=== PATIENT | male | born 1945 | race Caucasian/White ===

== ENCOUNTER 2019-07-31 17:49 | Observation (INO) | payer MEDICARE, SELFPAY ==
[2019-07-31] VITALS (9 sets, daily range): BP systolic 148–196; BP diastolic 75–113; PULSE 54–66; RESP 12–20; TEMP 36.3–36.7; O2SAT 96–100; BMI 30.7
--- NOTE | 2019-07-31 17:59 | NURSING ---
NO OLD EKGS
--- NOTE | 2019-07-31 18:03 | EKG12_ITS ---
Test Reason : CP Blood Pressure : / mmHG Vent. Rate : 056 BPM Atrial Rate : 056 BPM P-R Int : 218 ms QRS Dur : 098 ms QT Int : 442 ms P-R-T Axes : 039 074 102 degrees QTc Int : 426 ms Sinus bradycardia with 1st degree A-V block Otherwise normal ECG When compared with ECG of 31-JUL-2019 17:59, MANUAL COMPARISON REQUIRED, DATA IS UNCONFIRMED Confirmed by JOSE DALTON ([id number]), associate editor FARRUKH WILSON ([id number]) on 08/01/2019 1:19:20 PM Referred By: DR. HUERTA Confirmed By:JOSE DALTON
--- NOTE | 2019-07-31 18:15 | RAD_ITS ---
STUDY: X-RAY CHEST REASON FOR EXAM: Male, 74 years old. Chest pain TECHNIQUE: Frontal view COMPARISON: None. FINDINGS: The lungs are expanded. Possible left suprahilar focal infiltrate. Normal size heart. Normal mediastinum and juan manuel. Normal visualized pulmonary arteries. Normal visualized aortic arch and descending thoracic aorta. Degenerative changes of the thoracic spine. Normal visualized ribs, clavicles, and shoulders. There is no demonstrated abnormality of the visualized soft tissue structures of the upper abdomen. RAD/Chest 1 View (Portable) IMPRESSION: Left suprahilar focal infiltrate. Electronically Signed: Braulio Queen DO at 18:37 EST Tel [phone], Service support ,
[2019-07-31] MEDS: Aspirin 81 MG TAB.CHEW 324 MG PO (18:16)
--- NOTE | 2019-07-31 18:17 | ED.VISSUMM ---
- ER Visit Summary Date of Service: 07/31/19 Chief Complaint: Left Sided chest pain History of Present Illness: The patient is a 74 M TIA and history of mild COPD. Patient still smokes. He has no known cardiac history. He does not believe he is ever had a stress test or heart cath. States yesterday today has had left-sided chest pressure. States for some time is had exertional dyspnea. No history of DVT or PE. No recent travel, surgery or immobilization. No leg pain or swelling. No pleuritic pain. No hemoptysis. Currently is pain-free. Physical Examination: Older male no acute distress currently pain-free initial blood pressure 187/88. Pulse ox are percent on room air no signs hypoxia. H EENT exam unremarkable. Neck nontender no JVD. Lungs clear to auscultation bilaterally. Heart regular rhythm no murmur. Chest were nontender. Abdomen soft nontender. Normal bowel sounds no peritoneal signs. Extremities moves all 4. Equal symmetrical radial pulses. Calves are nontender without edema or cords. Neurologically is awake and alert with no focal motor deficits. Test Results: EKG shows a normal sinus rhythm rate of 61 with no acute signs of DE or ischemia. No old EKG available for comparison. Chest x-ray portable 1 view shows a questionable left perihilar infiltrate versus scarring versus other. One view read both by myself and the radiologist. CBC white count of 7. Hemoglobin 16. Chemistries unremarkable creatinine of 1.2 gap of 4 troponin normal. Repeat exam the patient is doing well at 1842. He is pain-free. He and I discussed his test results he is comfortable with being admitted. Emergency Department Course and Treatment: Male with exertional dyspnea and nonreproducible chest pain. Concern is for cardiac etiology. To undergo cardiac work-up. Received p.o. aspirin. Treatment Plan: Hospitalist on page for admission Disposition: Admission Impression: Acute chest pain uncertain etiology This note was generated with [employer] dictation software. It may contain incorrect words, spelling, and punctuation that were not noted in review of the chart prior to signing
[2019-07-31 18:19] LABS: Absolute Lymphocyte Count 3.15 X10^3/uL (0.83-4.51); Absolute Neutrophil Count 3.2 X10^3/uL (2.0-7.7); Basophil# 0.07 X10^3/uL; Basophil% 0.9 % (0-1); Eosinophil# 0.25 X10^3/uL; Eosinophils% 3.4 % (0-5); Hematocrit 48.9 % (40-54); Hemoglobin 16.6 g/dL (13.0-16.5); Lymphocyte # 3.15 X10^3/ul (4.0); Lymphocyte % 42.6 % (19-41); Mean Corp Hgb Conc 33.9 g/dL (32-36); Mean Corpuscular Hgb 31.4 pg (27.0-32.0); Mean Corpuscular Volume 92.4 fL (80-94); Mean Platelet Vol. 10.4 fl (6.2-12.0); Monocyte# 0.75 X10^3/uL; Monocyte% 10.1 % (0-10); NRBC Flagged by Analyzer 0 % (0-5); Neutrophil # 3.16 X10^3/uL (2.7-7.7); Neutrophil % 42.7 % (47-70); Platelet Count 307 K/mm3 (150-450); RBC Distribution Width CV 13.2 % (11.6-14.6); RBC Distribution Width SD 45.1 fl (35.1-43.9); Red Blood Count 5.29 M/mm3 (4.6-6.2); White Blood Count 7.4 K/mm3 (4.4-11.0)
[2019-07-31 18:30] LABS: Anion Gap 4 (5-15); BUN 11 mg/dL (7-18); BUN/Creat Ratio 9.1 RATIO (10-20); Calcium,Total 9.5 mg/dL (8.5-10.1); Chloride 105 mmol/L (98-107); Creatinine, Serum 1.21 mg/dL (0.70-1.30); EST Glomerular Filtration Rate 63 mL/min (>60); Est Glom Filt Rate - Afr Amer 76 mL/min (>60); Estimated Creatinine Clearance 60.57 ml/min; Glucose 109 mg/dL (74-106); Potassium 3.7 mmol/L (3.5-5.1); Sodium Level 139 mmol/L (136-145)
--- NOTE | 2019-07-31 18:51 | HP.PCM_ITS ---
History of Present Illness The patient is a 74 year old M [] Past Medical History Allergies No Known Allergies Allergy (Verified 07/31/19 17:54) Home Medications: Ambulatory Orders Medication Instructions Recorded Aspirin [Aspir 81] 81 mg PO DAILY 07/31/19 Bupropion HCl [Bupropion HCl Sr] 150 mg PO DAILY 07/31/19 Smoking Status: Current every day smoker - Physical Exam Vitals/I&O's: Vital Signs Temp Pulse Resp BP Pulse Ox 97.4 F L 62 20 H 196/113 H 96 07/31/19 17:50 07/31/19 18:47 07/31/19 18:47 07/31/19 18:47 07/31/19 18:47 Oxygen Delivery Method Room Air Weight: 226 lb 10.163 oz Body Mass Index (BMI) 30.7 Laboratory Results 07/31/19 18:05: WBC 7.4, RBC 5.29, Hgb 16.6 H, Hct 48.9, MCV 92.4, MCH 31.4, MCHC 33.9, RDW Std Deviation 45.1 H, RDW Coeff of Liudmila 13.2, Plt Count 307, MPV 10.4, Immature Gran % (Auto) 0.300, Neut % (Auto) 42.7 L, Lymph % (Auto) 42.6 H, [place] % (Auto) 10.1 H, Eos % (Auto) 3.4, Baso % (Auto) 0.9, Absolute Neuts (auto) 3.2, Absolute Lymphs (auto) 3.15, Nucleated RBC % 0 07/31/19 18:05: Sodium 139, Potassium 3.7, Chloride 105, Carbon Dioxide 30.0, Anion Gap 4 L, BUN 11, Creatinine 1.21, Estim Creat Clear Calc 60.57, Est GFR (MDRD) Af Amer 76, Est GFR (MDRD) Non-Af 63, BUN/Creatinine Ratio 9.1 L, Glucose 109 H, Calcium 9.5, Troponin I < 0.015
--- NOTE | 2019-07-31 19:46 | HP.PCM_ITS ---
Problem List (1) Chest pain Status: Acute Qualifiers: Chest pain type: unspecified Qualified Code(s): R07.9 - Chest pain, unspecified (2) COPD (chronic obstructive pulmonary disease) Status: Chronic Qualifiers: COPD type: unspecified COPD Qualified Code(s): J44.9 - Chronic obstructive pulmonary disease, unspecified (3) Tobacco use Status: Chronic (4) HTN (hypertension) Status: Chronic Qualifiers: Hypertension type: essential hypertension Qualified Code(s): I10 - Essential (primary) hypertension (5) HLD (hyperlipidemia) Status: Chronic Qualifiers: Hyperlipidemia type: unspecified Qualified Code(s): E78.5 - Hyperlipidemia, unspecified (6) Obesity (BMI 30.0-34.9) Status: Chronic History of Present Illness Date of Admission: 07/31/19 Chief Complaint: Chest pain The patient is a 74 y/o M w/ PMHx: Obesity, Heavy Tobacco use history, History of HTN and HLD taken off his regimen 1 year prior as well controlled per his report, COPD not on regimen who presents to the [facility] ED on 07/31/19 with history of onset of chest discomfort over the last 2 days noted to be left-sided, underneath the breast, described as a pressure, 7 of 10 in severity at its worst, 2 out of 10 on evaluation in the ED, with no radiation nor any increased dyspnea above baseline nor nausea, emesis or diaphoresis, lasting minutes to hour the day prior but continued upon ED day of presentation prompting eventual evaluation. Patient does admit that he has exertional dyspnea, worse with any activity including stairs that is been ongoing for at least several months if not to the last year and a half. Work-up in the ED included T 97.4, heart rate 63, BP initially 187/88 with improvement to 169/87, respiratory rate 14, 100% room air, CBC with WC 7.4, hemoglobin 16.6, platelet 307 with no left shift but increased lymphocytes and monocytes, BMP with glucose 109 otherwise not market, troponin less than 0.015, EKG was sinus rhythm with no acute evidence of ischemia, chest x-ray with a left suprahilar focal infiltrate although patient with no recent increased cough, congestion, dyspnea, fever or chills thus lower suspicion but significant tobacco use history. In the ED patient administered aspirin therapy. Past Medical History Past Medical History (Chronic Problems): Chronic Problems COPD (chronic obstructive pulmonary disease) (Chronic) Tobacco use (Chronic) HTN (hypertension) (Chronic) HLD (hyperlipidemia) (Chronic) Obesity (BMI 30.0-34.9) (Chronic) Allergies No Known Allergies Allergy (Verified 07/31/19 17:54) Home Medications: Ambulatory Orders Medication Instructions Recorded Aspirin [Aspir 81] 81 mg PO DAILY 07/31/19 Psychiatric History: No pertinent psych hx Lives: With Family - Lives with his daughter and her . Smoking Status: Current every day smoker - 1 ppd cigarette tobacco usage ongoing since use. Tobacco Use: Cigarettes Alcohol: Occasional Drugs: None - *Family History Maternal History Items: High Cholesterol, Heart Disease, Hypertension Paternal History Items: - - Patient states he does not know his paternal family history as his father left when he was 6 weeks old. Review of Systems Constitutional: Reports: Malaise, Weakness, Fatigue. Denies: Anorexia, Chills, Fever, Weight Change HEENT: Denies: Head Aches, Sinus Congestion, Sinus Drainage Cardiovascular: Reports: Chest Pain, Chest Pressure, Chest Tightness, Heaviness, Light Headedness. Denies: Orthopnea, Palpitations, Syncope Respiratory: Reports: Shortness of Breath, Shortness of breath upon exertion. Denies: Cough, Shortness of breath at rest, Sputum production Gastrointestinal: Denies: Abdominal Pain, Nausea, Vomiting Genitourinary: Denies: Dysuria Musculoskeletal: Reports: Joint Pain. Denies: Joint Tenderness Skin: Denies: Rash, Wounds Neurological: Denies: Numbness, Tingling, Focal weakness Psychiatric: Denies: Anxiety, Depression, Homicidal Ideations, Suicidal Ideations Hematologic/ Lymphatic: Denies: Easy Bruising, Easy Bleeding VTE Information - Inpt Only VTE Present on Admission: No VTE Mechan Device Prophylaxis: SCD's VTE Pharm Prophylaxis ordered?: Yes Patient Problems: Active and Suspected Problems Chest pain (Acute) Subjective: Seated upright in ED bed, mildly fatigued appearance, notes chest discomfort improved, currently 2 out of 10 in severity. Objective: Physical Examination: General: awake, alert, oriented x 3 and cooperative, seated upright in the ED bed in no apparent distress, notes improved chest discomfort, 10 of 10 currently. Skin: normal color, turgor, no icterus, cyanosis. HEENT: AT/NC, EOMI, PERRLA, MMM, no carotid bruits or JVD noted. Lungs: Mildly diminished breath sounds, greater bases, moderate effort, no obvious no rales, ronchi or wheezing. Heart: Mildly bradycardic with regular rhythm; no gallop, rub audible. Abdomen: soft, obese, NTTP, ND, normal BS, no HSM. Extremities: no cyanosis, clubbing, or edema. Neurological: patient awake, alert, oriented x 3; cognitive function intact; pupils equally reactive to light and accomodation; cranial nerves II-XII grossly normal, moving all 4 extremities, no focal deficits, strength mildly to moderately global decrease secondary to acute complaints. Psychiatric: affect appears mildly fatigued otherwise normal, no acute evidence of depressive or anxiety feelings. - Physical Exam Vitals/I&O's: Vital Signs Temp Pulse Resp BP Pulse Ox 97.4 F L 58 L 12 169/87 H 97 07/31/19 17:50 07/31/19 19:07 07/31/19 19:07 07/31/19 19:07 07/31/19 19:07 Oxygen Delivery Method Room Air Weight: 226 lb 10.163 oz Body Mass Index (BMI) 30.7 Laboratory Results 07/31/19 18:05: WBC 7.4, RBC 5.29, Hgb 16.6 H, Hct 48.9, MCV 92.4, MCH 31.4, MCHC 33.9, RDW Std Deviation 45.1 H, RDW Coeff of Liudmila 13.2, Plt Count 307, MPV 10.4, Immature Gran % (Auto) 0.300, Neut % (Auto) 42.7 L, Lymph % (Auto) 42.6 H, Iron % (Auto) 10.1 H, Eos % (Auto) 3.4, Baso % (Auto) 0.9, Absolute Neuts (auto) 3.2, Absolute Lymphs (auto) 3.15, Nucleated RBC % 0 07/31/19 18:05: Sodium 139, Potassium 3.7, Chloride 105, Carbon Dioxide 30.0, Anion Gap 4 L, BUN 11, Creatinine 1.21, Estim Creat Clear Calc 60.57, Est GFR (MDRD) Af Amer 76, Est GFR (MDRD) Non-Af 63, BUN/Creatinine Ratio 9.1 L, Glucose 109 H, Calcium 9.5, Troponin I < 0.015 Current Medications Sodium Chloride () 10 - 40 ml IV UD PRN PRN Reason: SALINE FLUSH Assessment/Plan All Active Problems Chest pain (Acute) The patient is a 74 y/o M w/ PMHx: Obesity, Heavy Tobacco use history, History of HTN and HLD taken off his regimen 1 year prior as well controlled per his report, COPD not on regimen who presents to the [facility] ED on 07/31/19 with history of onset of chest discomfort over the last 2 days noted to be left-sided, underneath the breast, described as a pressure, 7 of 10 in severity at its worst, 2 out of 10 on evaluation in the ED, with no radiation nor any increased dyspnea above baseline nor nausea, emesis or diaphoresis, lasting minutes to hour the day prior but continued upon ED day of presentation prompting eventual evaluation. 1. Chest Pain: EKG in ED with sinus bradycardia with first-degree AV block with no acute evidence of ischemia, CXR w/ abnormal left suprahilar focal infiltrate mentioned but again not consistent with history for pneumonia, initial trop x1. Will admit to PCU, place on a monitored bed to assure no acute myocardial infarction with serial cardiac enzymes and EKGs. Given patient history of significant dyspnea with exertion with underlying COPD will request nuclear stress test in a.m. if EKG and cardiac enzymes remain appropriate. Additional history of lightheadedness with positional changes, ongoing for several months, will obtain admission orthostatic vital signs. ASA, NG, morphine. 2. Abnormal chest x-ray: Chest x-ray with noted left suprahilar focal infiltrate, no recent cough, congestion, worsened dyspnea, fevers or chills, given significant tobacco use history some concern for alternate etiology, will obtain CT chest. 3. Hypertension: Notes previously on regimen, possibly lisinopril per his report but taken off 1 year prior as BPs have been improved with lifestyle changes, notably elevated, will re-add lisinopril, suspect likely may need additional regimen but will continue to monitor, PRN IV hydralazine. 4. Hyperlipidemia: Notes he was previously on medication but his cholesterol was good and was taken off approximately 1 year prior at the same time as his hypertensive regimen, FLP in a.m., possibly re-addition. 5. Chronic COPD: We will initiate ATC duonebs, PRN albuterol, HOB, IS parameters, discussed importance of following with pulmonary outpatient as ongoing dyspnea complaints, worse with exertion and possibly pulmonary component. 6. Tobacco Abuse: Encouraged cessation, inpatient consultation per RT, NR if desired. 7. Obesity: Weight loss and lifestyle changes encouraged. 8. DVT prophylaxis: SCDs, Lovenox. Code Visit OBSV E&M: [id number] Initial observation care L3
--- NOTE | 2019-07-31 20:14 | CT_ITS ---
STUDY: CTA CHEST REASON FOR EXAM: Male, 74 years old. ABNORMAL CXR, CP X 2 DAYS, HX HTN, COPD RADIATION DOSAGE (If Supplied By Facility): CTDIvol = ( 12.16 ) mGy, DLP = ( 531.73 ) mGycm TECHNIQUE: The examination was performed with the intravenous administration of IV 100mL Isovue-370. Post-processing of the angiographic images was performed, with multiplanar reformation and 3D reconstruction. Individualized dose optimization techniques were used for this CT. COMPARISON: None. FINDINGS: Normal enhancement of the main pulmonary artery and right and left pulmonary arteries. Normal enhancement of the bilateral peripheral pulmonary arteries. There is no demonstrated pulmonary embolism. Normal thoracic aorta and visualized great vessels. There is no demonstrated aortic dissection. Normal heart and pericardium. Normal mediastinum. Normal hilar regions. Normal visualized trachea and bronchi. The lungs are well expanded. Calcified and noncalcified nodules are noted bilaterally up to 7 mm. Normal pleura. Normal chest wall structures. Degenerative vertebral changes. Normal visualized upper abdomen. CT/CTA Chest W/WO Contrast IMPRESSION: No demonstrated pulmonary embolism or arterial dissection. Calcified and noncalcified pulmonary nodules bilaterally likely granulomatous in nature. Electronically Signed: Braulio Queen DO at 21:12 EST Tel [phone], Service support ,
--- NOTE | 2019-07-31 20:14 | EKG12_ITS ---
Test Reason : Blood Pressure : / mmHG Vent. Rate : 061 BPM Atrial Rate : 061 BPM P-R Int : 204 ms QRS Dur : 098 ms QT Int : 422 ms P-R-T Axes : 047 077 104 degrees QTc Int : 424 ms Normal sinus rhythm Normal ECG Confirmed by JOSE DALTON ([id number]), social media editor MICHAEL CHÁVEZ ([id number] on 08/04/2019 3:42:31 PM Referred By: JOSEFA Confirmed By:JOSE DALTON
[2019-07-31 20:28] LABS: Magnesium 2.4 mg/dL (1.6-2.6)
[2019-07-31] MEDS: Ipratropium/Albuterol Sulfate 3 ML AMPUL.NEB INHALATION (21:20)
[2019-07-31] MEDS: Acetaminophen 325 MG Tablet 650 MG PO (21:57)
[2019-07-31] MEDS: Lisinopril 20 MG Tablet PO (21:59)
[2019-07-31] MEDS: Famotidine 20 MG Tablet PO (21:59)
[2019-07-31] MEDS: 0.9% Normal Saline 1,000 ML 100 ML IV (22:01)
[2019-07-31] MEDS: 0.9% Saline Lock 10 ML Syringe IV (22:04)
[2019-08-01 03:15] VITALS: PULSE 54
[2019-08-01 04:23] VITALS: BP 137/75; PULSE 51; RESP 17; TEMP 36.7; O2SAT 97
[2019-08-01 05:45] LABS: Absolute Lymphocyte Count 3.16 X10^3/uL (0.83-4.51); Absolute Neutrophil Count 2.6 X10^3/uL (2.0-7.7); Basophil# 0.06 X10^3/uL; Basophil% 0.9 % (0-1); Eosinophils% 4.3 % (0-5); Hematocrit 44.5 % (40-54); Hemoglobin 15.1 g/dL (13.0-16.5); Lymphocyte # 3.16 X10^3/ul (4.0); Lymphocyte % 45.8 % (19-41); Mean Corp Hgb Conc 33.9 g/dL (32-36); Mean Corpuscular Hgb 31.1 pg (27.0-32.0); Mean Corpuscular Volume 91.8 fL (80-94); Mean Platelet Vol. 10.3 fl (6.2-12.0); Monocyte# 0.81 X10^3/uL; Monocyte% 11.7 % (0-10); NRBC Flagged by Analyzer 0 % (0-5); Neutrophil # 2.56 X10^3/uL (2.7-7.7); Neutrophil % 37.2 % (47-70); Platelet Count 260 K/mm3 (150-450); RBC Distribution Width CV 13.1 % (11.6-14.6); RBC Distribution Width SD 44.5 fl (35.1-43.9); Red Blood Count 4.85 M/mm3 (4.6-6.2); White Blood Count 6.9 K/mm3 (4.4-11.0)
[2019-08-01 06:08] LABS: Anion Gap 4 (5-15); BUN 11 mg/dL (7-18); BUN/Creat Ratio 10.6 RATIO (10-20); Calcium,Total 8.6 mg/dL (8.5-10.1); Chloride 109 mmol/L (98-107); Cholesterol 195 mg/dL (200); Creatinine, Serum 1.04 mg/dL (0.70-1.30); EST Glomerular Filtration Rate 75 mL/min (>60); Est Glom Filt Rate - Afr Amer 90 mL/min (>60); Estimated Creatinine Clearance 70.47 ml/min; Glucose 116 mg/dL (74-106); High Density Lipoprotein 30 mg/dL; Potassium 3.7 mmol/L (3.5-5.1); Sodium Level 139 mmol/L (136-145); Triglycerides 140 mg/dL; Very Low Density Lipoprotein 28 mg/dL (5-40)
[2019-08-01 06:09] VITALS: BP 133/76; PULSE 50; RESP 15; TEMP 36.6; O2SAT 97
[2019-08-01] MEDS: Lisinopril 20 MG Tablet PO (06:12)
[2019-08-01] MEDS: Aspirin E.C. 81 MG Tablet PO (06:12)
[2019-08-01] MEDS: Famotidine 20 MG Tablet PO (06:12)
[2019-08-01 06:48] VITALS: PULSE 47
[2019-08-01] MEDS: Ipratropium/Albuterol Sulfate 3 ML AMPUL.NEB INHALATION (07:09)
[2019-08-01 07:10] VITALS: PULSE 52; RESP 18; O2SAT 95
[2019-08-01] MEDS: 0.9% Normal Saline 1,000 ML 100 ML IV (09:59)
--- NOTE | 2019-08-01 10:41 | STRESSREP ---
Stress Test Report Pharmacologic myocardial perfusion stress test. 74-year-old man with a history of chest pain. Stress protocol: Resting EKG demonstrates normal sinus rhythm with a rate of 57 bpm normal intervals are noted resting blood pressures 140/80 mmHg. 0.4 mg of regadenoson was infused per usual protocol followed Intravenous saline flush injection continuous cardiac monitor technician was performed. The maximum heart rate was 77 bpm which was 52% of maximum predicted heart rate the maximum workload was 1 metabolic equivalent. At rest there were no ST or T wave changes noted to suggest abnormal flow reserve at peak infusion nonspecific ST-T wave changes were noted. No ischemia was noted. The resting blood pressure was 140/80 mmHg with a final blood pressure 132/74 mmHg. Myocardial perfusion protocol. 14.0 mCi of technetium 99m sestamibi was injected at rest. 0.4 mg of regadenoson was infused per usual protocol peak infusion 45.0 mCi of technetium 99m sestamibi was injected stress images were obtained stress and rest images were reconstructed and compared in the short axis vertical horizontal long axis. Gated images were also obtained per Perfusion SPECT analysis: Review of the stress images demonstrate normal uptake of tracer noted in all areas of myocardium the resting images similar demonstrate normal uptake of tracer noted in all areas of myocardium. No reversibility is noted suggest ischemia. Gated SPECT analysis: The gated ejection fraction is 72%. Conclusion: Normal pharmacologic myocardial perfusion stress test. Preserved ejection fraction.
--- NOTE | 2019-08-01 11:13 | PCM.DC ---
- Discharge Diagnoses Current Active Problems: Current Active and Chronic Problems Chest pain (Acute) COPD (chronic obstructive pulmonary disease) (Chronic) Tobacco use (Chronic) HTN (hypertension) (Chronic) HLD (hyperlipidemia) (Chronic) Obesity (BMI 30.0-34.9) (Chronic) You will use the following diet at home:: No restrictions Discharge Activity: Return to Normal Activity Call your doctor if you observe: Shortness of breath, Dizziness, Fainting spells, Chest pain Allergies/Adverse Reactions: Allergies No Known Allergies Allergy (Verified 07/31/19 17:54) Medications to take at Discharge Aspirin [Aspir 81] 81 mg PO DAILY 07/31/19 Lisinopril [Zestril] 20 mg PO DAILY #30 tab 08/01/19 The following prescriptions were given: Lisinopril [Zestril] 20 mg PO DAILY #30 tab Transmission Status: Pending to [facility] Primary Care Physician: Pa Araujo [Primary Care Provider] - Please follow up with your Primary Care Physician in: 1 Week Test Results: Test results from this visit will be discussed in further detail at your follow-up appointment, if applicable. Proposed Discharge Date: 08/01/19
[2019-08-01 11:15] VITALS: BP 139/67; PULSE 61; RESP 16; TEMP 36.4; O2SAT 100
--- NOTE | 2019-08-01 11:15 | DS.PCM_ITS ---
<Khloe Garcia - Last Filed: 08/01/19 11:22> Discharge Date and Diagnosis Date of Admission: 07/31/19 Date of Discharge: 08/01/19 - Primary Discharge Diagnosis Active and Suspected Problems 1. Chest pain, ACS ruled out 2. Abnormal chest CT with pulmonary nodules bilaterally, likely granulomatous' 3. Hypertension 4. Hyperlipidemia 5. Chronic COPD 6. Tobacco abuse 7. Obesity - Secondary Discharge Diagnosis Chronic Problems COPD (chronic obstructive pulmonary disease) (Chronic) Tobacco use (Chronic) HTN (hypertension) (Chronic) HLD (hyperlipidemia) (Chronic) Obesity (BMI 30.0-34.9) (Chronic) Hospital Course and Treatment Imaging Results: Diagnostic Data Chest X-Ray 07/31/19 18:15 IMPRESSION: Left suprahilar focal infiltrate. Electronically Signed: Braulio Queen DO at 18:37 EST Tel [phone], Service support , Chest CTA 07/31/19 20:14 IMPRESSION: No demonstrated pulmonary embolism or arterial dissection. Calcified and noncalcified pulmonary nodules bilaterally likely granulomatous in nature. Electronically Signed: Braulio Queen DO at 21:12 EST Tel [phone], Service support , Operations: None Procedures: Stress test Summary of Care Provided: The patient is a 74 year old M admitted 07/31/2019 due to chest pain. 1. Chest pain, ACS ruled out-suspect musculoskeletal in nature. Chest pain reproducible. Troponin negative. EKG without ST-T changes. Patient underwent nuclear stress test which was negative for ischemia, gated ejection fraction 72%. Follow-up with primary care physician in 1 week. 2. Abnormal chest CT with pulmonary nodules bilaterally, likely granulomatous- CT of chest demonstrated calcified and noncalcified pulmonary nodules bilaterally likely granulomatous in nature. Recommend follow-up with pulmonary medicine as outpatient for ongoing monitoring. 3. Hypertension-previously on lisinopril which she had been taken off 1 year prior. Given elevated blood pressure, restarted on lisinopril 20 mg daily with further outpatient monitoring and adjustment as necessary. 4. Hyperlipidemia-continue statin. 5. Chronic COPD- no exacerbation. 6. Tobacco abuse- encouraged cessation. 7. Obesity- encouraged diet and lifestyle modifications. Patient seen and examined prior to discharge. Physical assessment as noted below. Patient is stable for discharge with follow up recommendations as noted above. This patient was seen by MIKE Mendez under the supervision of Dr. Craig. - Physical Exam Vitals/I&O's: Vital Signs Temp Pulse Resp BP Pulse Ox 97.9 F 52 L 18 133/76 H 95 08/01/19 06:09 08/01/19 07:10 08/01/19 07:10 08/01/19 06:09 08/01/19 07:10 Oxygen Delivery Method Room Air Weight: 226 lb 10.163 oz Body Mass Index (BMI) 30.7 Orthostatic Vital Signs Start: 07/31/19 22:11 Freq: q24h Status: Active Protocol: Activity Type Activity Date Activity User E-Sign Co-Sign Detail Recorded Client Recorded Date Recorded By Document 07/31/19 22:11 [facility] [id number] 07/31/19 22:15 [facility] 07/31/19 22:11 Orthostatic Vitals Standing -Blood Pressure (90/60-120/80) 167/79 H -Extremity Use Right Arm -Pulse Rate (60-100) 66 Sitting -Blood Pressure (90/60-120/80) 148/75 H -Extremity Use Right Arm -Pulse Rate (60-100) 61 Lying -Blood Pressure (90/60-120/80) 151/75 H -Extremity Use Right Arm -Pulse Rate (60-100) 60 Intake and Output for Last 24 Hours 07/30/19 07/31/19 08/01/19 23:59 23:59 23:59 Intake Total 1335 / 1335 Balance 1335 / 1335 General: Alert, Oriented x3, Cooperative HEENT: Atraumatic, PERRLA, EOMI, Normocephalic Neck: Supple, No JVD, Negative Carotid Bruits Lungs: Clear to auscultation, Normal air movement Cardiovascular: Regular rate, Regular Rhythm, Normal S1, Normal S2, No murmurs Abdomen: Bowel Sounds Present, Soft, Non Tender, Non-Distended Extremities: No clubbing, No cyanosis, No edema Skin: No rashes, No breakdown Musculoskeletal: No Tenderness to Palpation of Joints or Extremities Neurological: Cranial nerves II-XII grossly intact, Neuro grossly intact Psych/Mental Status: Normal Affect, Appropriate Laboratory Results 07/31/19 18:05: WBC 7.4, RBC 5.29, Hgb 16.6 H, Hct 48.9, MCV 92.4, MCH 31.4, MCHC 33.9, RDW Std Deviation 45.1 H, RDW Coeff of Liudmila 13.2, Plt Count 307, MPV 10.4, Immature Gran % (Auto) 0.300, Neut % (Auto) 42.7 L, Lymph % (Auto) 42.6 H, Erie % (Auto) 10.1 H, Eos % (Auto) 3.4, Baso % (Auto) 0.9, Absolute Neuts (auto) 3.2, Absolute Lymphs (auto) 3.15, Nucleated RBC % 0 07/31/19 18:05: Sodium 139, Potassium 3.7, Chloride 105, Carbon Dioxide 30.0, Anion Gap 4 L, BUN 11, Creatinine 1.21, Estim Creat Clear Calc 60.57, Est GFR (MDRD) Af Amer 76, Est GFR (MDRD) Non-Af 63, BUN/Creatinine Ratio 9.1 L, Glucose 109 H, Calcium 9.5, Troponin I < 0.015 07/31/19 18:05: Magnesium 2.4 07/31/19 21:18: Troponin I < 0.015 08/01/19 00:30: Troponin I < 0.015 08/01/19 05:25: WBC 6.9, RBC 4.85, Hgb 15.1, Hct 44.5, MCV 91.8, MCH 31.1, MCHC 33.9, RDW Std Deviation 44.5 H, RDW Coeff of Liudmila 13.1, Plt Count 260, MPV 10.3, Immature Gran % (Auto) 0.100, Neut % (Auto) 37.2 L, Lymph % (Auto) 45.8 H, Erie % (Auto) 11.7 H, Eos % (Auto) 4.3, Baso % (Auto) 0.9, Absolute Neuts (auto) 2.6, Absolute Lymphs (auto) 3.16, Nucleated RBC % 0 08/01/19 05:25: Sodium 139, Potassium 3.7, Chloride 109 H, Carbon Dioxide 26.0, Anion Gap 4 L, BUN 11, Creatinine 1.04, Estim Creat Clear Calc 70.47, Est GFR (MDRD) Af Amer 90, Est GFR (MDRD) Non-Af 75, BUN/Creatinine Ratio 10.6, Glucose 116 H, Calcium 8.6, Triglycerides 140, Cholesterol 195, LDL Cholesterol 137 H, VLDL Cholesterol 28, HDL Cholesterol 30 L Current Medications Acetaminophen (Tylenol) 650 mg PO Q6H PRN PRN PRN Reason: Pain Score 1-10/Temp > 100.7 F Last Admin: 07/31/19 21:57 Dose: 650 mg Documented by: Al Hydroxide/Mg Hydroxide (Mylanta Ii) 30 ml PO Q6H PRN PRN PRN Reason: Gastric Burning Albuterol Sulfate (Ventolin Aerosols) 2.5 mg INHALATION Q2H PRN PRN PRN Reason: dyspnea, wheezing Albuterol/Ipratropium (Duoneb) 3 ml INHALATION Q6HWA.RT [facility] Last Admin: 08/01/19 07:09 Dose: 3 ml Documented by: [facility]) [facility] Last Admin: 08/01/19 06:12 Dose: 81 mg Documented by: Enoxaparin Sodium (Lovenox) 40 mg SC DAILY [facility] Famotidine (Pepcid) 20 mg PO BID [facility] Last Admin: 08/01/19 06:12 Dose: 20 mg Documented by: Glucagon () 1 mg IM .X1 PRN PRN Reason: Hypoglycemia Guaifenesin (Robitussin) 20 ml PO Q4H PRN PRN PRN Reason: COUGH Sodium Chloride () 1,000 mls @ 100 mls/hr IV .Q10H [facility] Last Admin: 08/01/19 09:59 Dose: 100 mls/hr Documented by: Dextrose (Dextrose 10%-Water) 250 mls @ 999 mls/hr IV .Q16M PRN; Protocol PRN Reason: HYPOGLYCEMIA Lisinopril (Zestril) 20 mg PO DAILY [facility] Last Admin: 08/01/19 06:12 Dose: 20 mg Documented by: Magnesium Hydroxide (Milk Of Magnesia) 30 ml PO DAILY PRN PRN PRN Reason: Constipation Melatonin (Melatonin) 3 mg PO QHS PRN PRN PRN Reason: INSOMNIA Morphine Sulfate () 2 mg IV Q3H PRN PRN PRN Reason: Pain Score 6-10/10 Nitroglycerin (Nitrostat) 0.4 mg SUBLINGUAL Q5M PRN PRN Reason: CARDIAC/CHEST PAIN Ondansetron HCl (Zofran) 4 mg IV Q8H PRN PRN PRN Reason: NAUSEA/VOMITING Oxycodone HCl (Oxyir) 5 mg PO Q4H PRN PRN PRN Reason: Pain Score 4-5/10 Prochlorperazine Edisylate (Compazine Iv) 5 mg IV Q4H PRN PRN PRN Reason: Breakthrough Nausea/Vomiting Psyllium Hydrophilic Mucilloid (Metamucil) 1 packet PO DAILY PRN PRN PRN Reason: Constipation Senna/Docusate Sodium (Senokot-S, Gisella-Colace) 2 tablet PO BID PRN PRN PRN Reason: Constipation Sodium Chloride () 10 - 40 ml IV UD PRN PRN Reason: SALINE FLUSH Last Admin: 07/31/19 22:04 Dose: 10 ml Documented by: Throat Lozenges (Cepacol Sore Throat Lozenge) 1 lozenge MUCOUS MEM Q2H PRN PRN PRN Reason: SORE THROAT Discharge Diet: No Restrictions Discharge Activity: Return to Normal Activity Call your doctor if you observe: Shortness of breath, Dizziness, Fainting spells, Chest pain Home Medications: Medications to take at Discharge Aspirin [Aspir 81] 81 mg PO DAILY #30 08/01/19 Lisinopril [Zestril] 20 mg PO DAILY #30 tab 08/01/19 Following Prescrptions Were Given to Patient: Aspirin [Aspir 81] 81 mg PO DAILY #30 Prescription Printed Lisinopril [Zestril] 20 mg PO DAILY #30 tab Transmission Status: Received by [facility] Primary Care Physician: Pa Araujo [Primary Care Provider] - Please follow up with your Primary Care Physician in: 1 Week Disposition: Home Minutes spent on discharge:: 35 Patient Condition:: Stable Medical Necessity - Tobacco Use Smoking Status: Current every day smoker - 1 ppd cigarette tobacco usage ongoing since use. Tobacco Use: Cigarettes Meaningful Use Info Meaningful Use Diagnoses (Choose all that apply): None applicable <Atul Craig - Last Filed: 08/01/19 14:12> Discharge Date and Diagnosis - Secondary Discharge Diagnosis Chronic Problems COPD (chronic obstructive pulmonary disease) (Chronic) Tobacco use (Chronic) HTN (hypertension) (Chronic) HLD (hyperlipidemia) (Chronic) Obesity (BMI 30.0-34.9) (Chronic) Hospital Course and Treatment Imaging Results: 08/01/19 05:55 Nuclear Stress Test - Chemical [NM] AM (NON MEDS) Summary of Care Provided: This patient was seen in conjunction with Khloe TIDWELL. I have independently interviewed and examined the patient and reviewed pertinent history, examination findings, laboratory and plan of management. I have reviewed the note and agree with the documented findings with the few additional points. In brief, patient is admitted for chest pain seems most likely musculoskeletal in nature. Serial troponin enzymes negative. EKG independently reviewed and normal sinus rhythm without significant ST-T changes suggestive of ischemia. Patient had nuclear myocardial stress test which was negative for ischemia. EF 72%. Patient has abnormal chest CT which shows bilateral calcified and noncalcified pulmonary nodules most likely granulomatous in nature. Patient has history of smoking since age of 22s while he still smokes about a pack per day therefore 50 pack years of smoking. Advised to follow-up in pulmonary clinic for PFT. Other comorbidities as hypertension, dyslipidemia, COPD and chronic tobacco use. Blood pressure 139/67. Discharge medication reconciliation done. Discharge follow-up instructions completed. Discharge process discussed with the patient and all questions were answered to patient's satisfaction. I have discussed my assessment with CHOIR DIRECTORKhloe and orders have been reviewed. [] Subjective: Seen and examined. Patient chest pain is much improved. Still feels that midsternal soreness. He said he might have pushed SOFA/furniture at home No shortness of breath. - Physical Exam Vitals/I&O's: Vital Signs Temp Pulse Resp BP Pulse Ox 97.6 F L 61 16 139/67 H 100 08/01/19 11:15 08/01/19 11:15 08/01/19 11:15 08/01/19 11:15 08/01/19 11:15 Oxygen Delivery Method Room Air Weight: 226 lb 10.163 oz Body Mass Index (BMI) 30.7 Orthostatic Vital Signs Start: 07/31/19 22:11 Freq: q24h Status: Active Protocol: Activity Type Activity Date Activity User E-Sign Co-Sign Detail Recorded Client Recorded Date Recorded By Document 07/31/19 22:11 [facility] [id number] 07/31/19 22:15 [facility] 07/31/19 22:11 Orthostatic Vitals Standing -Blood Pressure (90/60-120/80) 167/79 H -Extremity Use Right Arm -Pulse Rate (60-100) 66 Sitting -Blood Pressure (90/60-120/80) 148/75 H -Extremity Use Right Arm -Pulse Rate (60-100) 61 Lying -Blood Pressure (90/60-120/80) 151/75 H -Extremity Use Right Arm -Pulse Rate (60-100) 60 Intake and Output for Last 24 Hours 07/30/19 07/31/19 08/01/19 23:59 23:59 23:59 Intake Total 1496.67 / 1496.67 Balance 1496.67 / 1496.67 General: Alert, Oriented x3, Cooperative HEENT: Atraumatic, PERRLA, EOMI, Normocephalic Neck: Supple, No JVD, Negative Carotid Bruits Lungs: Clear to auscultation, Normal air movement, No rhonchi, No wheeze, No rales Cardiovascular: Regular rate, No murmurs Abdomen: Bowel Sounds Present, Soft, Non Tender, Non-Distended Extremities: No edema, Capillary Refill Less than 3 Seconds Skin: No rashes, No breakdown Musculoskeletal: No Tenderness to Palpation of Joints or Extremities, Arthritic Changes Neurological: Cranial nerves II-XII grossly intact, Deep Tendon Reflexes 2+/4 and Symmetrical, Neuro grossly intact, Motor Exam 5/5 strength throughout Psych/Mental Status: Normal Affect, Appropriate Laboratory Results 07/31/19 18:05: WBC 7.4, RBC 5.29, Hgb 16.6 H, Hct 48.9, MCV 92.4, MCH 31.4, MCHC 33.9, RDW Std Deviation 45.1 H, RDW Coeff of Liudmila 13.2, Plt Count 307, MPV 10.4, Immature Gran % (Auto) 0.300, Neut % (Auto) 42.7 L, Lymph % (Auto) 42.6 H, Erie % (Auto) 10.1 H, Eos % (Auto) 3.4, Baso % (Auto) 0.9, Absolute Neuts (auto) 3.2, Absolute Lymphs (auto) 3.15, Nucleated RBC % 0 07/31/19 18:05: Sodium 139, Potassium 3.7, Chloride 105, Carbon Dioxide 30.0, Anion Gap 4 L, BUN 11, Creatinine 1.21, Estim Creat Clear Calc 60.57, Est GFR (MDRD) Af Amer 76, Est GFR (MDRD) Non-Af 63, BUN/Creatinine Ratio 9.1 L, Glucose 109 H, Calcium 9.5, Troponin I < 0.015 07/31/19 18:05: Magnesium 2.4 07/31/19 21:18: Troponin I < 0.015 08/01/19 00:30: Troponin I < 0.015 08/01/19 05:25: WBC 6.9, RBC 4.85, Hgb 15.1, Hct 44.5, MCV 91.8, MCH 31.1, MCHC 33.9, RDW Std Deviation 44.5 H, RDW Coeff of Liudmila 13.1, Plt Count 260, MPV 10.3, Immature Gran % (Auto) 0.100, Neut % (Auto) 37.2 L, Lymph % (Auto) 45.8 H, Erie % (Auto) 11.7 H, Eos % (Auto) 4.3, Baso % (Auto) 0.9, Absolute Neuts (auto) 2.6, Absolute Lymphs (auto) 3.16, Nucleated RBC % 0 08/01/19 05:25: Sodium 139, Potassium 3.7, Chloride 109 H, Carbon Dioxide 26.0, Anion Gap 4 L, BUN 11, Creatinine 1.04, Estim Creat Clear Calc 70.47, Est GFR (MDRD) Af Amer 90, Est GFR (MDRD) Non-Af 75, BUN/Creatinine Ratio 10.6, Glucose 116 H, Calcium 8.6, Triglycerides 140, Cholesterol 195, LDL Cholesterol 137 H, VLDL Cholesterol 28, HDL Cholesterol 30 L Code Visit OBSV E&M: [id number] Observation care discharge
--- NOTE | 2019-08-01 11:54 | PHA.DC.MC ---
Pharmacy Service has performed discharge medication reconciliation and counseling for this patient. 1. LISINOPRIL 20MG PO DAILY The patient's discharge medication list was reviewed for discrepancies and discrepancies were resolved. Home Medications Aspirin [Aspir 81] 81 mg PO DAILY #30 08/01/19 Lisinopril [Zestril] 20 mg PO DAILY #30 tab 08/01/19 The patient was counseled on the following discharge medications and changes in medications for homegoing were reviewed. The Reason for Use, instructions for use, and potential side effects were reviewed for all new medications. The patient's questions regarding all of their medications were answered. The patient was able to verbally demonstrate an understanding of their discharge medications.
== END 2019-08-01 11:13 | disposition home or self-care (01) ==
LOC: ED 18:43 → PCU 19:56
PROVIDERS: Family Medicine; Admitting Provider Student in an Organized Health Care Education/Training Program; Emergency Provider Emergency Medicine; PCP Family Medicine Geriatric Medicine; Visit Provider Internal Medicine
DX: R07.89 Other chest pain (principal); I10 Essential (primary) hypertension; E78.5 Hyperlipidemia, unspecified; J44.9 Chronic obstructive pulmonary disease, unspecified; F17.210 Nicotine dependence, cigarettes, uncomplicated; E66.9 Obesity, unspecified; Z68.30 Body mass index [BMI] 30.0-30.9, adult; Z79.82 Long term (current) use of aspirin; Z71.3 Dietary counseling and surveillance; R91.8 Other nonspecific abnormal finding of lung field
CPT/HCPCS: 36415; 71045; 71275; 78452; 80048; 80061; 83735; 84484; 85025; 93005; 93017; 94640; 96360; 96361; 99218; 99285; A9500; J7030; Q9967; A4216; G0378; J2785